=== PATIENT | female | born 1955 | race Caucasian/White ===

== ENCOUNTER 2023-12-02 10:17 | Inpatient (IN) | payer OTHER ==
[~2023-12-02] VITALS: Ht 172.7 cm; Wt 103.6 kg
[2023-12-02 10:40] VITALS: PULSE 71; RESP 20; O2SAT 98
[2023-12-02 11:05] LABS: Basophils # (auto) 0.1 10 ^3/uL (0-0.2); Basophils % (auto) 0.5 % (0.0-2.0); Eosinophils # (auto) 0.1 10 ^3/uL (0-0.8); Eosinophils % (auto) 0.7 % (0.0-7.0); Hemoglobin 12.6 g/dL (12.2-16.2); Lymphocytes # (auto) 1.7 10 ^3/uL (0.4-5.4); Lymphocytes % (auto) 14.2 % (10.0-50.0); Mean Corpuscular Hemoglobin 30.1 pg (28.0-32.0); Mean Corpuscular Hgb Conc. 34.1 g/dL (32.0-36.0); Mean Corpuscular Volume 88.2 fL (80.0-100.0); Monocytes # (auto) 1.1 10 ^3/uL (0-1.3); Neutrophils # (auto) 9.2 10 ^3/uL (1.6-8.6); Neutrophils % (auto) 75.6 % (37.0-80.0); Red Blood Cells 4.19 10^6/uL (4.0-5.20); Red Cell Distribution Width 12.9 % (11.8-14.3); White Blood Cell 12.1 10^3/uL (4.4-10.8)
[2023-12-02 11:12] LABS: Chloride 97 mmol/L (98-107); Potassium 2.8 mmol/L (3.5-5.1); Sodium 135 mmol/L (136-145)
[2023-12-02 11:13] LABS: Anion Gap 11 (5-15); Carbon Dioxide 27 mmol/L (20-30)
[2023-12-02 11:14] LABS: Calcium 9.6 mg/dL (8.7-10.4)
[2023-12-02 11:19] LABS: BUN/Creatinine Ratio 12.2 (10.0-20.0); Blood Urea Nitrogen 9 mg/dL (9-23); Glucose 126 mg/dL (74-106)
[2023-12-02 11:29] LABS: Urine Bacteria None Seen /hpf (None Seen)
[2023-12-02 11:45] LABS: Urine Blood Negative /uL (Negative); Urine Clarity Clear (Clear); Urine Color Light-Yellow (Yellow); Urine Protein, UAD Negative (Negative); Urine Specific Gravity 1.004 (1.001-1.035); Urine Urobilinogen Normal (Negative); Urine WBC 1 /hpf (0 - 5); Urine pH 6.5 (5.0-9.0)
[2023-12-02] MEDS ORDERED: ONDANSETRON HCL 4 MG/2 ML VIAL IV PRN (14:15)
[2023-12-02] MEDS ORDERED: ACETAMINOPHEN 325 MG TAB PO PRN (14:15)
[2023-12-02] MEDS: IODIXANOL 320MG/ML 100ML BTL IV ONE (15:10)
[2023-12-02] MEDS: methylPREDNISolone SOD SUCC 40 MG/ML VL IV ONE ×2 (15:26→15:53)
[2023-12-02] MEDS: diphenhdrAMINE HCL 50 MG/1 ML VL IV ONE (15:26)
[2023-12-02] MEDS: LACTATED RINGER'S 1,000 ML IV ONE (16:40)
[2023-12-02] MEDS: POTASSIUM CHL 20 Meq TABLET PO ONE (16:45)
[2023-12-02 17:12] VITALS: BP 155/65; PULSE 85; RESP 20; TEMP 98.2; O2SAT 97
[2023-12-02 17:43] VITALS: BP 155/65; PULSE 85; RESP 20; TEMP 98.2; O2SAT 97
[2023-12-02 17:45] VITALS: PULSE 65; RESP 16; O2SAT 98
[2023-12-02] MEDS ORDERED: ONDA-155 PO (18:29)
[2023-12-02] MEDS ORDERED: PANT1INJ3 PO (18:29)
[2023-12-02] MEDS ORDERED: METF-370 PO (18:29)
[2023-12-02] MEDS ORDERED: SENN8.6T26 PO (18:29)
[2023-12-02] MEDS ORDERED: LOSA-535 PO (18:29)
[2023-12-02] MEDS ORDERED: AML5T PO (18:29)
[2023-12-02] MEDS ORDERED: OXYC-963 PO (18:29)
[2023-12-02] MEDS ORDERED: ASPI325T6 PO (18:29)
[2023-12-02] MEDS ORDERED: ATE50T PO (18:29)
[2023-12-02] MEDS ORDERED: MAGN400T40 PO (18:29)
[2023-12-02] MEDS ORDERED: ATOR10TA52 PO (18:29)
[2023-12-02] MEDS: HYDROmorphone HCL 2 MG/ML VL/or syr IV PRN (18:39)
[2023-12-02 20:00] VITALS: PULSE 84
[2023-12-02] MEDS: DOCUSATE SOD 100 MG CAP PO PRN (20:58)
[2023-12-02] MEDS: HYDROcodone-ACET 5/325MG TAB PO PRN (20:59)
[2023-12-02 21:00] VITALS: BP 148/63; PULSE 77; RESP 16; TEMP 97.8; O2SAT 95
[2023-12-02] MEDS: SODIUM CHLOR 0.9% PF (SALINE LOCK) 10ML VIAL/SYR IV SCH (21:08)
[2023-12-03] VITALS (7 sets, daily range): BP systolic 137–149; BP diastolic 53–69; PULSE 69–85; RESP 17–20; TEMP 97.7–98.4; O2SAT 90–100
[2023-12-03] MEDS: ENOXAPARIN SOD 40 MG/0.4 ML SYRINGE SC SCH (08:27)
[2023-12-03 12:23] LABS: Basophils # (auto) 0 10 ^3/uL (0-0.2); Basophils % (auto) 0.3 % (0.0-2.0); Eosinophils # (auto) 0 10 ^3/uL (0-0.8); Eosinophils % (auto) 0.1 % (0.0-7.0); Hematocrit 36.4 % (36.0-46.0); Hemoglobin 12.4 g/dL (12.2-16.2); Lymphocytes # (auto) 1.4 10 ^3/uL (0.4-5.4); Lymphocytes % (auto) 10.3 % (10.0-50.0); Mean Corpuscular Hemoglobin 30.2 pg (28.0-32.0); Mean Corpuscular Hgb Conc. 34.1 g/dL (32.0-36.0); Mean Corpuscular Volume 88.4 fL (80.0-100.0); Monocytes # (auto) 1.1 10 ^3/uL (0-1.3); Monocytes % (auto) 8.3 % (0.0-12.0); Neutrophils # (auto) 11.1 10 ^3/uL (1.6-8.6); Red Blood Cells 4.11 10^6/uL (4.0-5.20); Red Cell Distribution Width 12.8 % (11.8-14.3); White Blood Cell 13.7 10^3/uL (4.4-10.8)
[2023-12-03 12:42] LABS: Alanine Aminotransferase 19 U/L (7-40); Albumin 4.1 g/dL (3.2-4.8); Alkaline Phosphatase 79 U/L (46-116); Anion Gap 9 (5-15); Aspartate Aminotransferase 22 U/L (13-40); BUN/Creatinine Ratio 21.5 (10.0-20.0); Blood Urea Nitrogen 14 mg/dL (9-23); Calcium 9.3 mg/dL (8.7-10.4); Carbon Dioxide 30 mmol/L (20-30); Chloride 100 mmol/L (98-107); Glucose 145 mg/dL (74-106); Magnesium 1.5 mg/dL (1.6-2.6); Potassium 2.9 mmol/L (3.5-5.1); Sodium 139 mmol/L (136-145)
[2023-12-03 12:43] LABS: Total Protein 6.6 g/dL (5.7-8.2)
[2023-12-03 12:44] LABS: INR 1.13 (0.9-1.15); Prothrombin Time 11.9 sec (9.3-11.8)
[2023-12-03] MEDS ORDERED: POTASSIUM CHLORIDE 60 MEQ, LIDOCAINE 1% (LOCAL ANESTH.) 6 ML in SODIUM CHL 0.9% 500 ML IV ONE ×2 (13:15→13:45)
[2023-12-03] MEDS: POTASSIUM EFFERVESENT TAB 25 MEQ PO ONE ×2 (13:22→21:10)
[2023-12-03] MEDS: MAGNESIUM SULFATE 1GM/100ML 100 ML IV SCH (13:22)
[2023-12-03] MEDS: MAGNESIUM SULFATE 1GM/100ML 200 ML IV ONE (17:29)
[2023-12-03] MEDS: FUROSEMIDE 20 MG/2 ML VIAL IV ONE (17:39)
[2023-12-03 19:07] LABS: Potassium 2.9 mmol/L (3.5-5.1)
[2023-12-03 19:14] LABS: Magnesium 2.1 mg/dL (1.6-2.6)
[2023-12-03] MEDS: POTASSIUM CHLORIDE 60 MEQ, LIDOCAINE 1% (LOCAL ANESTH.) 6 ML in SODIUM CHL 0.9% 500 ML IV ONE (21:13)
[2023-12-04 01:00] VITALS: BP 122/54; PULSE 77; RESP 20; TEMP 97.9; O2SAT 91
[2023-12-04 04:53] VITALS: BP 119/52; PULSE 74; RESP 20; TEMP 97.5; O2SAT 95
[2023-12-04 06:03] LABS: Basophils # (auto) 0 10 ^3/uL (0-0.2); Basophils % (auto) 0.3 % (0.0-2.0); Eosinophils # (auto) 0.2 10 ^3/uL (0-0.8); Lymphocytes # (auto) 2.1 10 ^3/uL (0.4-5.4)
[2023-12-04 06:05] LABS: Eosinophils % (auto) 1.8 % (0.0-7.0); Hemoglobin 11.9 g/dL (12.2-16.2); Lymphocytes % (auto) 21.3 % (10.0-50.0); Mean Corpuscular Hemoglobin 29.7 pg (28.0-32.0); Mean Corpuscular Hgb Conc. 33.9 g/dL (32.0-36.0); Mean Corpuscular Volume 87.6 fL (80.0-100.0); Monocytes # (auto) 0.8 10 ^3/uL (0-1.3); Monocytes % (auto) 8.2 % (0.0-12.0); Neutrophils # (auto) 6.6 10 ^3/uL (1.6-8.6); Neutrophils % (auto) 68.4 % (37.0-80.0); Red Blood Cells 3.99 10^6/uL (4.0-5.20); White Blood Cell 9.7 10^3/uL (4.4-10.8)
[2023-12-04 06:20] LABS: Alanine Aminotransferase 21 U/L (7-40); Albumin 3.6 g/dL (3.2-4.8); Alkaline Phosphatase 72 U/L (46-116); Anion Gap 7 (5-15); Aspartate Aminotransferase 28 U/L (13-40); BUN/Creatinine Ratio 17.2 (10.0-20.0); Bilirubin, Total 0.7 mg/dL (0.2-1.0); Blood Urea Nitrogen 10 mg/dL (9-23); Calcium 8.5 mg/dL (8.7-10.4); Carbon Dioxide 29 mmol/L (20-30); Chloride 103 mmol/L (98-107); Glucose 132 mg/dL (74-106); Potassium 3.9 mmol/L (3.5-5.1); Sodium 139 mmol/L (136-145); Total Protein 5.9 g/dL (5.7-8.2)
[2023-12-04 08:05] VITALS: PULSE 68
[2023-12-04 08:59] VITALS: BP 137/58; PULSE 73; RESP 17; TEMP 98.4; O2SAT 95
[2023-12-04] MEDS: FUROSEMIDE 20 MG/2 ML VIAL IV SCH (09:32)
[2023-12-04 12:52] VITALS: BP 145/62; PULSE 83; RESP 17; TEMP 97.9; O2SAT 95
[2023-12-04 14:31] VITALS: BP 137/58; TEMP 36.6
== END 2023-12-04 15:19 | disposition home or self-care (01) | DRG 291 ==
LOC: ER 10:17 → EDBD 10:17 → TELE 14:09 → TELE-WESTW 17:43
PROVIDERS: ADMIT Internal Medicine Pulmonary Disease; ATTEND Internal Medicine Pulmonary Disease
DX: I11.0 Hypertensive heart disease with heart failure (principal); I50.21 Acute systolic (congestive) heart failure; E87.6 Hypokalemia; E11.9 Type 2 diabetes mellitus without complications; I44.7 Left bundle-branch block, unspecified; R06.03 Acute respiratory distress; E83.42 Hypomagnesemia; Z88.0 Allergy status to penicillin; Z88.2 Allergy status to sulfonamides; Z91.041 Radiographic dye allergy status
CPT/HCPCS: 36415; 71045; 71275; 80048; 80053; 81001; 83735; 83880; 84132; 84484; 85025; 85379; 85610; 93005; 93970; 96361; 96374; 96375; 99291; G0378; J2001; Q9967